=== PATIENT | male | born 1950 | race Caucasian/White ===

== ENCOUNTER → 2016-03-26 | Outpatient (CLI) | payer BC ==
[2016-03-26 12:56] LABS: HEMOGLOBIN A1C 6.34 % (4.2-6.0); MEAN BLOOD GLUCOSE (CALC) 125.122 mg/dL
== END ==
LOC: MOB LAB 10:41
DX: E11.9 Type 2 diabetes mellitus without complications (principal)
CPT/HCPCS: 36415; 83036

== ENCOUNTER → 2016-07-23 | Outpatient (CLI) | payer BC ==
[2016-07-23 15:35] LABS: HEMOGLOBIN A1C 5.84 % (4.2-6.0)
== END ==
LOC: MOB LAB 11:44
DX: E11.9 Type 2 diabetes mellitus without complications (principal)
CPT/HCPCS: 36415; 83036

== ENCOUNTER 2016-08-14 07:51 | Day surgery (SDC) | payer BC ==
[~2016-08-14 07:51] MED LIST: LIDOCAINE W/ SODIUM BICARB 0.5 ML SYR ONE; Lactated Ringers 1,000 ML PRIMARY IV ONE
--- NOTE | 2016-08-14 09:22 | GEN.OPNOTE ---
Colonoscopy Procedure Note Surgery Date: 08/14/16 Preoperative Diagnosis: Screening for colon cancer Postoperative Diagnosis: Screening for colon cancer Procedure: Colonoscopy Surgeon: Tito French MD Anesthesia Provider: Dave Alexis CRNA Anesthesia Type: MAC Indications: Patient needs a screening colonoscopy. In over 10 years since his last colonoscopy Findings: Prep : Excellent Cecum : Scope was advanced to the cecum ileocecal valve clearly identified. Cannulated terminal ileum small bowel is normal. No pathology seen in the cecum Ascending : Ascending colons within normal limits no polyps tumors or cancers Transverse : Transverse colons within normal limits no polyps tumors or cancers Sigmoid : Descending and sigmoid colon free from cancer or polyps Rectum : Rectum free from disease Digital Rectal Exam : A lubricated flexible colonoscope was inserted and passed to the blind end of the cecum.
[2016-08-14 09:45] VITALS: RESP 16
[2016-08-14 09:46] VITALS: TEMP 0930
== END 2016-08-14 09:30 | disposition home or self-care (01) ==
LOC: SDSC 07:51
PROVIDERS: ATTEND Surgery
DX: Z12.11 Encounter for screening for malignant neoplasm of colon (principal)
CPT/HCPCS: 45378; J2704; J7120